=== PATIENT | female | born 1960 | race Caucasian/White ===

== ENCOUNTER 2018-08-07 22:35 | Emergency (ER) | payer MEDICAID ==
[~2018-08-07] VITALS: Ht 152.4 cm; Wt 62.7 kg
[2018-08-07] MEDS ORDERED: HYDROcodone/acetaminophen 10/325mg tab PO ONE (23:50)
[2018-08-07] MEDS ORDERED: naproxen 500mg tablet PO ONE (23:50)
[2018-08-08] MEDS ORDERED: HYDR-4353 PO (03:52)
[2018-08-08] MEDS ORDERED: HYDROcodone/acetaminophen 10/325mg tab PO ONE (03:55)
[2018-08-08 04:45] VITALS: BP 146/101
== END 2018-08-08 04:46 | disposition home or self-care (01) ==
LOC: ER 22:36
DX: M84.433A Pathological fracture, right radius, initial encounter for fracture (principal); M84.421A Pathological fracture, right humerus, initial encounter for fracture
CPT/HCPCS: 29105; 73080; 73200; 99284